=== PATIENT | female | born 1980 | race Hispanic/Latino ===

== ENCOUNTER 2024-01-24 13:04 | Outpatient (CLI) | payer BC | END 2024-01-24 13:05 | disposition home or self-care (01) | LOC: CSHLAB 13:04 | PROVIDERS: ATTEND Obstetrics & Gynecology | DX: Z01.818 Encounter for other preprocedural examination (principal); N92.0 Excessive and frequent menstruation with regular cycle | CPT/HCPCS: 84703; 85027; 86850; 86900; 86901; 93005; 93010 ==